=== PATIENT | male | born 1995 | race African-American/Black ===

== ENCOUNTER 2018-05-16 15:17 | Emergency (ER) | payer SELFPAY ==
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
[2018-05-16 17:14] VITALS: BP 144/88
--- NOTE | 2018-05-16 17:20 | RAD ---
Indication: Right hip pain. 2 views of the right hip and an AP view of the pelvis demonstrates no fracture. Pelvic ring is intact. Several foreign bodies overlying the right hemipelvis are noted.. IMPRESSION: No fracture of the right hip or pelvis.
== END 2018-05-16 17:14 | disposition home or self-care (01) ==
LOC: ED 15:17
DX: S70.01XA Contusion of right hip, initial encounter (principal); R42 Dizziness and giddiness; R11.0 Nausea; R50.9 Fever, unspecified; M25.551 Pain in right hip; M79.604 Pain in right leg; R55 Syncope and collapse; W50.0XXA Accidental hit or strike by another person, initial encounter; Y93.11 Activity, swimming; Y92.9 Unspecified place or not applicable
CPT/HCPCS: 99282